=== PATIENT | male | born 1940 | race Caucasian/White ===

== ENCOUNTER 2018-10-13 09:28 | Emergency (ER) | payer BC ==
[2018-10-13 09:49] VITALS: BP 122/74; PULSE 73; TEMP 98.2; BMI 38.7
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
[2018-10-13] MEDS ORDERED: NAPROXEN 500 MG TABLET (FP) PO ONE (12:59)
[2018-10-13] MEDS ORDERED: NAPROXEN 500 MG TABLET (FP) ONE (13:44)
== END 2018-10-13 14:02 | disposition home or self-care (01) ==
LOC: JER 09:28
DX: M79.605 Pain in left leg (principal)
CPT/HCPCS: 73552-TC-LT-FY; 73562-TC-LT-FY; 93971-TC; 99282-25

== ENCOUNTER 2018-11-08 12:44 | Inpatient (IN) | payer BC, OTHER ==
--- NOTE | 2018-11-08 12:55 | PDOC ---
History of Present Illness - General Stated Complaint: LEFT KNEE PAIN Time Seen by Provider: 11/08/18 12:55 - History of Present Illness Initial Comments: 11/08/18 12:55 Mr. Frank is a 78 yo male w/ pmh of HTN, HLD, left knee replacement (w/ chronic pain) who presents for evaluation of pain to left knee after falling in the bath tub today. Patient had tri phasic bone scan 11/04/17 for his chronic pain which revealed no acute findings. Currently scheduled to follow-up with orthopedics on Saturday. Patient currently reporting exacerbation of his L knee pain. Took oxycodone at home already. The patient denies chest pain, shortness of breath, headache and dizziness. Denies fever, chills, nausea, vomit, diarrhea and constipation. Denies dysuria, frequency, urgency and hematuria. Past History - Past Medical History Allergies/Adverse Reactions: Allergies Allergy/AdvReac Type Severity Reaction Status Date / Time valdecoxib [From Bextra] Allergy Verified 10/13/18 10:57 Home Medications: Ambulatory Orders Atenolol [Tenormin] 50 mg PO DAILY 10/13/18 Atorvastatin Ca [Lipitor] 40 mg PO HS 10/13/18 Diazepam [Valium] 10 mg PO DAILY PRN 10/13/18 Naproxen [Naprosyn -] 500 mg PO BID 11/08/18 Omeprazole 20 mg PO DAILY 11/08/18 Oxycodone HCl [Roxicodone] 5 mg PO PRN PRN 11/08/18 COPD: No HTN: Yes - Immunization History Immunization Up to Date: No - Suicide/Smoking/Psychosocial Hx Smoking History: Never smoked Have you smoked in the past 12 months: No Hx Alcohol Use: No Drug/Substance Use Hx: No Review of Systems - Review of Systems Comments:: 11/08/18 12:55 GENERAL/CONSTITUTIONAL: No fever or chills. No weakness. HEAD, EYES, EARS, NOSE AND THROAT: No change in vision. No ear pain or discharge. No sore throat. CARDIOVASCULAR: No chest pain or shortness of breath RESPIRATORY: No cough, wheezing, or hemoptysis. GASTROINTESTINAL: No nausea, vomiting, diarrhea or constipation. GENITOURINARY: No dysuria, frequency, or change in urination. MUSCULOSKELETAL: +L knee pain as described. SKIN: No rash NEUROLOGIC: No headache, vertigo, loss of consciousness, or change in strength/ sensation. ENDOCRINE: No increased thirst. No abnormal weight change HEMATOLOGIC/LYMPHATIC: No anemia, easy bleeding, or history of blood clots. ALLERGIC/IMMUNOLOGIC: No hives or skin allergy. 11/08/18 13:09 *Physical Exam - Physical Exam Comments: 11/08/18 12:55 GENERAL: Awake, alert, and fully oriented, in no acute distress HEAD: No signs of trauma, normocephalic, atraumatic EYES: PERRLA, EOMI, sclera anicteric, conjunctiva clear ENT: Auricles normal inspection, hearing grossly normal, nares patent, oropharynx clear without exudates. Moist mucosa NECK: Normal ROM, supple, no lymphadenopathy, JVD, or masses LUNGS: No distress, speaks full sentences, clear to auscultation bilaterally HEART: Regular rate and rhythm, normal S1 and S2, no murmurs, rubs or gallops, peripheral pulses normal and equal bilaterally. ABDOMEN: Soft, nontender, normoactive bowel sounds. No guarding, no rebound. No masses EXTREMITIES: +Left knee TTP. Bruising noted to LLE, outside thigh. Pain w/ flexion; unable to perform ROM testing due to pain. NEUROLOGICAL: Cranial nerves II through XII grossly intact. Normal speech, normal gait, no focal sensorimotor deficits SKIN: Warm, Dry, normal turgor, no rashes or lesions noted. Medical Decision Making - Medical Decision Making 11/08/18 14:40 Mr. Frank is a 78 yo male w/ pmh as described who presents for evaluation of knee pain s/p fall. Patient pain controlled with percocet. XR taken of knee, femur, pelvis revealed L midshaft femoral fracture. Orthopedist paged for evaluation. PCP paged for admission. 11/08/18 15:04 Patient admitted. Orthopedist consulted and will evaluate. Likely surgery Saturday11/10/2018. *DC/Admit/Observation/Transfer Diagnosis at time of Disposition: Femur fracture, left Qualifiers: Encounter type: initial encounter Femur location: unspecified portion of femur Fracture type: closed Fracture morphology: unspecified fracture morphology Qualified Code(s): S72.92XA - Unspecified fracture of left femur, initial encounter for closed fracture - Discharge Dispostion Decision to Admit order: Yes - Referrals Referrals: Olivier Noble MD [Primary Care Provider] - - Patient Instructions - Post Discharge Activity
--- NOTE | 2018-11-08 13:11 | PDOC ---
Attending Attestation - HPI HPI: 11/08/18 13:47 The patient is a 78 year old male with a significant PMH of HTN, HLD, left knee replacement who presents to the emergency department complaining of left knee pain s/p fall today morning. Patient took oxycodone earlier with no relief. Patient states he fell when he was in the shower today. Patient had a bone scan on 11/04/17 for chronic left knee pain. Patient took oxycodone earlier with no relief. The patient denies chest pain, shortness of breath, headache and dizziness. Denies fever, chills, nausea, vomit, diarrhea and constipation. Denies dysuria, frequency, urgency and hematuria. Allergies: NKA Past surgical history: left knee replacement Social history: No reported alcohol, drug or cigarette use. PCP: Dr. Noble <Brenda Juarez - Last Filed: 11/08/18 13:48> - Resident Resident Name: Joe Hall - ED Attending Attestation I have performed the following: I have examined & evaluated the patient, The case was reviewed & discussed with the resident, I agree w/resident's findings & plan, Exceptions are as noted - Physicial Exam PE: GENERAL: Awake, alert, and fully oriented, in no acute distress HEAD: No signs of trauma EYES: PERRLA, EOMI, sclera anicteric, conjunctiva clear ENT: Auricles normal inspection, hearing grossly normal, nares patent, oropharynx clear without exudates. Moist mucosa NECK: Normal ROM, supple, no lymphadenopathy, JVD, or masses LUNGS: Breath sounds equal, clear to auscultation bilaterally. No wheezes, and no crackles HEART: Regular rate and rhythm, normal S1 and S2, no murmurs, rubs or gallops ABDOMEN: Soft, nontender, normoactive bowel sounds. No guarding, no rebound. No masses EXTREMITIES: L leg with ecchymosis to the lateral thigh. No bony tenderness to the thigh or knee, however, pain is elicited upon movement of the L leg. + Swelling to the L knee. Remainder of extremities with normal range of motion, no edema. No clubbing or cyanosis. No cords, erythema, or tenderness NEUROLOGICAL: Cranial nerves II through XII grossly intact. Normal speech. Motor and sensation intact SKIN: Warm, Dry, normal turgor, no rashes or lesions noted. - Medical Decision Making Pt with L knee pain, noted to have L thigh ecchymosis. Obtained XR hip, femur, and knee on the L. Pt found to have L mid-shaft femur fx. Contacted PMD and ortho. For admission. <Marcie Torrez - Last Filed: 11/08/18 15:00>
[2018-11-08 15:31] LABS: BASO % 0.7 % (0-2.0); EOS % 6.5 % (0-4.5); HEMATOCRIT 42.4 % (35.4-49); HEMOGLOBIN 14.7 GM/dL (11.7-16.9); LYMPH % 14.1 % (8-40); MCH 32.4 pg (25.7-33.7); MCHC 34.7 g/dl (32.0-35.9); MEAN CELL VOLUME 93.3 fl (80-96); MONO % 5.7 % (3.8-10.2); PLATELET COUNT 142 K/MM3 (134-434); RBC 4.54 M/mm3 (4.00-5.60); RDW 12.7 % (11.9-15.9); WHITE BLOOD COUNT 8.6 K/mm3 (4.0-10.0)
[2018-11-08 15:47] LABS: INR 1.08 (0.83-1.09); PROTHROMBIN TIME (PATIENT) 12.7 SEC (9.7-13.0)
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
[2018-11-08] MEDS ORDERED: ACETAMINOPHEN 325 MG TABLET (FP) PO PRN (15:57)
[2018-11-08 16:01] LABS: ALBUMIN 3.8 g/dl (3.4-5.0); ALK PHOS 121 U/L (45-117); ANION GAP 6 MMOL/L (8-16); BILIRUBIN,TOTAL 0.5 mg/dL (0.2-1); BLOOD UREA NITROGEN 24 mg/dL (7-18); CALCIUM 8.1 mg/dL (8.5-10.1); CHLORIDE 103 mmol/L (98-107); CO2 28 mmol/L (21-32); CREATININE 1.2 mg/dL (0.55-1.3); GLUCOSE,RANDOM 99 mg/dL (74-106); POTASSIUM 4.5 mmol/L (3.5-5.1); SGOT/AST 18 U/L (15-37); SGPT/ALT 18 U/L (13-61); SODIUM 137 mmol/L (136-145); TOT PROT 6.6 g/dl (6.4-8.2)
[2018-11-08] MEDS ORDERED: PANTOPRAZOLE 40 MG TABLET (FP) ONE (16:14)
[2018-11-08] MEDS: PANTOPRAZOLE 40 MG TABLET (FP) PO SCH (16:14)
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
[2018-11-08] MEDS ORDERED: ATORVASTATIN CA 40 MG TABLET (FP) ONE (22:36)
[2018-11-08] MEDS ORDERED: diazePAM 5 MG TABLET ONE (22:52)
[2018-11-08] MEDS: ATORVASTATIN CA 40 MG TABLET (FP) PO SCH (22:55)
[2018-11-08] MEDS: diazePAM 5 MG TABLET PO PRN (22:55)
[2018-11-09 00:20] VITALS: BMI 38.2
[2018-11-09] MEDS: HEPARIN NA (PORCINE) 5,000 UNITS/ML 1ML VIAL SQ SCH ×3 (00:43→21:34)
[2018-11-09] MEDS ORDERED: ACETAMINOPHEN 325 MG TABLET (FP) PO PRN (00:43)
[2018-11-09] MEDS: oxyCODONE HCL 5 MG TABLET PO PRN ×3 (00:46→19:42)
--- NOTE | 2018-11-09 06:13 | PN ---
Progress Note, Physician Chief Complaint: L femoral pain with moving partially better with percocet - Current Medication List Current Medications: Active Medications Acetaminophen (Tylenol -) 650 mg PO Q6H PRN PRN Reason: PAIN LEVEL 1-5 Acetaminophen (Tylenol -) 650 mg PO Q6H PRN PRN Reason: PAIN LEVEL 6-10 Last Admin: 11/09/18 00:51 Dose: 650 mg Atenolol (Tenormin -) 50 mg PO DAILY [facility] Atorvastatin Calcium (Lipitor -) 40 mg PO HS [facility] Last Admin: 11/08/18 22:55 Dose: 40 mg Diazepam (Valium -) 10 mg PO DAILY PRN PRN Reason: ANXIETY Last Admin: 11/08/18 22:55 Dose: 10 mg Heparin Sodium (Porcine) (Heparin -) 5,000 unit SQ BID [facility] Last Admin: 11/09/18 00:43 Dose: 5,000 unit Oxycodone HCl (Roxicodone -) 10 mg PO Q6H PRN PRN Reason: PAIN LEVEL 6-10 Last Admin: 11/09/18 00:46 Dose: 10 mg Pantoprazole Sodium (Protonix -) 40 mg PO DAILY [facility] Last Admin: 11/08/18 16:14 Dose: 40 mg - Objective Vital Signs: Vital Signs Temperature 97.9 F 11/09/18 00:16 Pulse Rate 62 11/09/18 00:16 Respiratory Rate 18 11/09/18 00:16 Blood Pressure 155/80 11/09/18 00:16 O2 Sat by Pulse Oximetry (%) 96 11/09/18 00:11 Constitutional: Yes: No Distress, Calm Eyes: Yes: Conjunctiva Clear HENT: Yes: Atraumatic Neck: Yes: Supple Cardiovascular: Yes: Regular Rate and Rhythm Respiratory: Yes: CTA Bilaterally Gastrointestinal: Yes: Soft. No: Distention Genitourinary: No: CVA Tenderness - Left, CVA Tenderness - Right Musculoskeletal: No: Joint Stiffness, Joint Swelling Extremities: Yes: External Rotation (LLE). No: Cold, Cool, Cyanosis Edema: No Integumentary: No: Rash, Venous Stasis Changes Neurological: Yes: WNL, Alert, Oriented ...Motor Strength: WNL Psychiatric: Yes: WNL, Alert, Oriented. No: Agitated, Suicidal Ideation Labs: CBC, BMP 11/08/18 15:15 11/08/18 15:15 INR, PTT INR 1.08 (0.83-1.09) 11/08/18 15:15 - ....Imaging Other: Report Reviewed Assessment/Plan The patient is a 78 year old male with a significant PMH of HTN, HLD, left knee replacement admitted with L mid-shaft femoral fracture labs CXR EKG noted; cleared by cardiology for ortho surgery d/w dr Rivero no absolute contraindications for the proposed L femoral surgery DVT pfx NPO after midnight if surgery bwill be done tomorrow; pain meds d/w pt and staff
--- NOTE | 2018-11-09 08:41 | EKG ---
Test Reason : Blood Pressure : / mmHG Vent. Rate : 063 BPM Atrial Rate : 063 BPM P-R Int : 208 ms QRS Dur : 094 ms QT Int : 460 ms P-R-T Axes : 029 -36 -11 degrees QTc Int : 470 ms NORMAL SINUS RHYTHM LEFT AXIS DEVIATION VOLTAGE CRITERIA FOR LEFT VENTRICULAR HYPERTROPHY NONSPECIFIC ST ABNORMALITY ABNORMAL ECG WHEN COMPARED WITH ECG OF 28-JUN-2011 07:42, MINIMAL CRITERIA FOR SEPTAL INFARCT ARE NO LONGER PRESENT NON-SPECIFIC CHANGE IN ST SEGMENT IN ANTERIOR LEADS NONSPECIFIC T WAVE ABNORMALITY NO LONGER EVIDENT IN ANTEROLATERAL LEADS QT HAS SHORTENED Confirmed by LAURENT OLIVARES, CARMEN ([id number]) on 11/09/2018 8:40:47 AM Referred By: Confirmed By:CARMEN MANCILLA MD
--- NOTE | 2018-11-09 09:32 | PN ---
Progress Note, Physician History of Present Illness: The patient is a 78 year old male with a significant PMH of HTN, HLD, left knee replacement who presents to the emergency department complaining of left knee pain s/p fall today morning. Patient took oxycodone earlier with no relief. Patient states he fell when he was in the shower today. Patient had a bone scan on 11/04/17 for chronic left knee pain. Patient took oxycodone earlier with no relief. The patient denies chest pain, shortness of breath, headache and dizziness. Denies fever, chills, nausea, vomit, diarrhea and constipation. Denies dysuria, frequency, urgency and hematuria. Allergies: NKA Past surgical history: left knee replacement Social history: No reported alcohol, drug or cigarette use. PCP: Dr. Noble - Current Medication List Current Medications: Active Medications Acetaminophen (Tylenol -) 650 mg PO Q6H PRN PRN Reason: PAIN LEVEL 1-5 Acetaminophen (Tylenol -) 650 mg PO Q6H PRN PRN Reason: PAIN LEVEL 6-10 Last Admin: 11/09/18 00:51 Dose: 650 mg Atenolol (Tenormin -) 50 mg PO DAILY [facility] Atorvastatin Calcium (Lipitor -) 40 mg PO HS [facility] Last Admin: 11/08/18 22:55 Dose: 40 mg Diazepam (Valium -) 10 mg PO DAILY PRN PRN Reason: ANXIETY Last Admin: 11/08/18 22:55 Dose: 10 mg Heparin Sodium (Porcine) (Heparin -) 5,000 unit SQ BID [facility] Last Admin: 11/09/18 00:43 Dose: 5,000 unit Oxycodone HCl (Roxicodone -) 10 mg PO Q6H PRN PRN Reason: PAIN LEVEL 6-10 Last Admin: 11/09/18 08:25 Dose: 10 mg Pantoprazole Sodium (Protonix -) 40 mg PO DAILY [facility] Last Admin: 11/08/18 16:14 Dose: 40 mg - Objective Vital Signs: Vital Signs Temperature 98.2 F 11/09/18 06:44 Pulse Rate 101 H 11/09/18 06:44 Respiratory Rate 18 11/09/18 06:44 Blood Pressure 145/80 11/09/18 06:44 O2 Sat by Pulse Oximetry (%) 96 11/09/18 00:11 Eyes: Yes: WNL, Conjunctiva Clear, EOM Intact HENT: Yes: WNL, Atraumatic, Normocephalic Neck: Yes: WNL, Supple, Trachea Midline Cardiovascular: Yes: WNL, Regular Rate and Rhythm Respiratory: Yes: WNL, Regular, CTA Bilaterally Gastrointestinal: Yes: WNL, Normal Bowel Sounds Genitourinary: Yes: WNL Musculoskeletal: Yes: WNL Extremities: Yes: WNL Edema: No Integumentary: Yes: WNL Neurological: Yes: WNL, Alert, Oriented ...Motor Strength: WNL Psychiatric: Yes: WNL Labs: INR, PTT INR 1.08 (0.83-1.09) 11/08/18 15:15 Problem List - Problems (1) Femur fracture, left Code(s): S72.92XA - UNSP FRACTURE OF LEFT FEMUR, INIT ENCNTR FOR CLOSED FRACTURE Qualifiers: Encounter type: initial encounter Femur location: unspecified portion of femur Fracture type: closed Fracture morphology: unspecified fracture morphology Qualified Code(s): S72.92XA - Unspecified fracture of left femur, initial encounter for closed fracture (2) HLD (hyperlipidemia) Code(s): E78.5 - HYPERLIPIDEMIA, UNSPECIFIED (3) HTN (hypertension) Code(s): I10 - ESSENTIAL (PRIMARY) HYPERTENSION (4) Obesity Code(s): E66.9 - OBESITY, UNSPECIFIED (5) Leg pain, left Code(s): M79.605 - PAIN IN LEFT LEG Assessment/Plan l femur fx s/p l tkr htn hlp reports negative cardiac w/u last year no evidence of angina or mi, reports good exercise tolerance prior to fall Plan patient is low risk for cardiovascular complications for ORIF. cont DVT plx
[2018-11-09 09:39] LABS: HEMATOCRIT 43.7 % (35.4-49); HEMOGLOBIN 15.1 GM/dL (11.7-16.9); MCH 32.5 pg (25.7-33.7); MCHC 34.6 g/dl (32.0-35.9); MEAN CELL VOLUME 93.8 fl (80-96); MEAN PLT VOLUME 10.9 fl (7.5-11.1); PLATELET COUNT 130 K/MM3 (134-434); RBC 4.66 M/mm3 (4.00-5.60); RDW 13.2 % (11.9-15.9); WHITE BLOOD COUNT 6.9 K/mm3 (4.0-10.0)
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
[2018-11-09 10:14] LABS: ANION GAP 5 MMOL/L (8-16); BLOOD UREA NITROGEN 23 mg/dL (7-18); CALCIUM 8.8 mg/dL (8.5-10.1); CHLORIDE 102 mmol/L (98-107); CO2 29 mmol/L (21-32); CREATININE 1.1 mg/dL (0.55-1.3); GLUCOSE,RANDOM 100 mg/dL (74-106); POTASSIUM 4.2 mmol/L (3.5-5.1); SODIUM 136 mmol/L (136-145)
[2018-11-09] MEDS: PANTOPRAZOLE 40 MG TABLET (FP) PO SCH (10:15)
[2018-11-09] MEDS: ATENOLOL 50 MG TABLET (FP) PO SCH (10:15)
[2018-11-09] MEDS: diazePAM 5 MG TABLET PO PRN (11:22)
[2018-11-09] MEDS: ATORVASTATIN CA 40 MG TABLET (FP) PO SCH (21:34)
[2018-11-10] MEDS: oxyCODONE HCL 5 MG TABLET PO PRN ×2 (01:19→20:18)
[2018-11-10 07:31] LABS: BASO % 0.5 % (0-2.0); HEMATOCRIT 44.3 % (35.4-49); HEMOGLOBIN 14.2 GM/dL (11.7-16.9); LYMPH % 21.4 % (8-40); MCH 30.5 pg (25.7-33.7); MCHC 32.1 g/dl (32.0-35.9); MEAN PLT VOLUME 11.1 fl (7.5-11.1); MONO % 11.4 % (3.8-10.2); NEUT % 58.7 % (42.8-82.8); PLATELET COUNT 114 K/MM3 (134-434); RBC 4.66 M/mm3 (4.00-5.60); RDW 12.9 % (11.9-15.9)
[2018-11-10 08:19] LABS: ALBUMIN 3.3 g/dl (3.4-5.0); ALK PHOS 113 U/L (45-117); ANION GAP 8 MMOL/L (8-16); BILIRUBIN,TOTAL 0.6 mg/dL (0.2-1); BLOOD UREA NITROGEN 19 mg/dL (7-18); CALCIUM 8.5 mg/dL (8.5-10.1); CHLORIDE 100 mmol/L (98-107); CO2 27 mmol/L (21-32); CREATININE 1.1 mg/dL (0.55-1.3); GLUCOSE,RANDOM 91 mg/dL (74-106); POTASSIUM 4.1 mmol/L (3.5-5.1); SGOT/AST 11 U/L (15-37); SGPT/ALT 14 U/L (13-61); SODIUM 135 mmol/L (136-145); TOT PROT 6.3 g/dl (6.4-8.2)
--- NOTE | 2018-11-10 09:03 | PN ---
Progress Note (short form) - Note Progress Note: Ortho Pt seen and examined + shortened and ER, calf soft, nt nvi a/p OR today for left long IM gamma nail NPO d/w Dr. Alexander
--- NOTE | 2018-11-10 10:55 | PN ---
Progress Note, Physician Chief Complaint: in bed awake alert NAD afebrile VSS awaiting leg surgery no c/o except LLE pain with moving. - Current Medication List Current Medications: Active Medications Acetaminophen (Tylenol -) 650 mg PO Q6H PRN PRN Reason: PAIN LEVEL 1-5 Acetaminophen (Tylenol -) 650 mg PO Q6H PRN PRN Reason: PAIN LEVEL 6-10 Last Admin: 11/09/18 00:51 Dose: 650 mg Atenolol (Tenormin -) 50 mg PO DAILY [facility] Last Admin: 11/09/18 10:15 Dose: 50 mg Atorvastatin Calcium (Lipitor -) 40 mg PO HS [facility] Last Admin: 11/09/18 21:34 Dose: 40 mg Heparin Sodium (Porcine) (Heparin -) 5,000 unit SQ BID [facility] Last Admin: 11/09/18 21:34 Dose: 5,000 unit Oxycodone HCl (Roxicodone -) 10 mg PO Q6H PRN PRN Reason: PAIN LEVEL 6-10 Last Admin: 11/10/18 01:19 Dose: 10 mg Pantoprazole Sodium (Protonix -) 40 mg PO DAILY [facility] Last Admin: 11/09/18 10:15 Dose: 40 mg - Objective Vital Signs: Vital Signs Temperature 98.6 F 11/10/18 06:00 Pulse Rate 68 11/10/18 06:00 Respiratory Rate 20 11/10/18 06:00 Blood Pressure 153/76 11/10/18 06:00 O2 Sat by Pulse Oximetry (%) 96 11/09/18 00:11 Constitutional: Yes: No Distress, Calm Eyes: Yes: Conjunctiva Clear HENT: Yes: Atraumatic Neck: Yes: Supple Cardiovascular: Yes: Regular Rate and Rhythm Respiratory: Yes: CTA Bilaterally Gastrointestinal: Yes: Soft. No: Tenderness Genitourinary: No: CVA Tenderness - Left, CVA Tenderness - Right Musculoskeletal: No: Joint Stiffness, Joint Swelling Extremities: No: Cold, Cool Edema: No Integumentary: No: Rash, Venous Stasis Changes Neurological: Yes: WNL, Alert, Oriented ...Motor Strength: WNL Psychiatric: Yes: WNL, Alert, Oriented. No: Agitated, Suicidal Ideation Labs: CBC, BMP 11/10/18 06:30 11/10/18 06:30 INR, PTT INR 1.08 (0.83-1.09) 11/08/18 15:15 - ....Imaging Other: Report Reviewed Assessment/Plan The patient is a 78 year old male with a significant PMH of HTN, HLD, left knee replacement admitted with L mid-shaft femoral fracture labs CXR EKG noted; cleared by cardiology for ortho surgery no absolute contraindications for the proposed L femoral surgery DVT pfx NPO today pain meds d/w pt and staff - pt agreed with procedure
[2018-11-10] MEDS: PANTOPRAZOLE 40 MG TABLET (FP) PO SCH (10:58)
[2018-11-10] MEDS: HEPARIN NA (PORCINE) 5,000 UNITS/ML 1ML VIAL SQ SCH (10:59)
[2018-11-10] MEDS: ATENOLOL 50 MG TABLET (FP) PO SCH (11:13)
[2018-11-10] MEDS ORDERED: MIDAZOLAM HCL 2 MG/2 ML SINGLE DOSE VIAL ONE ×2 (14:18)
[2018-11-10] MEDS ORDERED: ceFAZolin SODIUM 1 GM VIAL IVPB ONE (14:30)
--- NOTE | 2018-11-10 14:50 | PN ---
Progress Note, Physician History of Present Illness: The patient is a 78 year old male with a significant PMH of HTN, HLD, left knee replacement who presents to the emergency department complaining of left knee pain s/p fall today morning. Patient took oxycodone earlier with no relief. Patient states he fell when he was in the shower today. Patient had a bone scan on 11/04/17 for chronic left knee pain. Patient took oxycodone earlier with no relief. The patient denies chest pain, shortness of breath, headache and dizziness. Denies fever, chills, nausea, vomit, diarrhea and constipation. Denies dysuria, frequency, urgency and hematuria. Allergies: NKA Past surgical history: left knee replacement Social history: No reported alcohol, drug or cigarette use. PCP: Dr. Noble - Current Medication List Current Medications: Active Medications Acetaminophen (Tylenol -) 650 mg PO Q6H PRN PRN Reason: PAIN LEVEL 6-10 Last Admin: 11/09/18 00:51 Dose: 650 mg Atenolol (Tenormin -) 50 mg PO DAILY [facility] Last Admin: 11/10/18 11:13 Dose: 50 mg Atorvastatin Calcium (Lipitor -) 40 mg PO HS [facility] Last Admin: 11/09/18 21:34 Dose: 40 mg Heparin Sodium (Porcine) (Heparin -) 5,000 unit SQ BID [facility] Last Admin: 11/10/18 10:59 Dose: Not Given Oxycodone HCl (Roxicodone -) 10 mg PO Q6H PRN PRN Reason: PAIN LEVEL 6-10 Last Admin: 11/10/18 01:19 Dose: 10 mg Pantoprazole Sodium (Protonix -) 40 mg PO DAILY [facility] Last Admin: 11/10/18 10:58 Dose: Not Given - Objective Vital Signs: Vital Signs Temperature 98.4 F 11/10/18 09:00 Pulse Rate 69 11/10/18 09:00 Respiratory Rate 18 11/10/18 09:00 Blood Pressure 125/73 11/10/18 09:00 O2 Sat by Pulse Oximetry (%) 96 11/10/18 09:00 Eyes: Yes: WNL, Conjunctiva Clear, EOM Intact HENT: Yes: WNL, Atraumatic, Normocephalic Neck: Yes: WNL, Supple, Trachea Midline Cardiovascular: Yes: WNL, Regular Rate and Rhythm Respiratory: Yes: WNL, Regular, CTA Bilaterally Gastrointestinal: Yes: WNL, Normal Bowel Sounds Genitourinary: Yes: WNL Musculoskeletal: Yes: WNL Extremities: Yes: WNL Edema: Yes Integumentary: Yes: WNL Neurological: Yes: WNL, Alert, Oriented ...Motor Strength: WNL Psychiatric: Yes: WNL Labs: CBC, BMP 11/10/18 06:30 11/10/18 06:30 INR, PTT INR 1.08 (0.83-1.09) 11/08/18 15:15 Problem List - Problems (1) Femur fracture, left Code(s): S72.92XA - UNSP FRACTURE OF LEFT FEMUR, INIT ENCNTR FOR CLOSED FRACTURE Qualifiers: Encounter type: initial encounter Femur location: unspecified portion of femur Fracture type: closed Fracture morphology: unspecified fracture morphology Qualified Code(s): S72.92XA - Unspecified fracture of left femur, initial encounter for closed fracture (2) HLD (hyperlipidemia) Code(s): E78.5 - HYPERLIPIDEMIA, UNSPECIFIED (3) HTN (hypertension) Code(s): I10 - ESSENTIAL (PRIMARY) HYPERTENSION (4) Obesity Code(s): E66.9 - OBESITY, UNSPECIFIED (5) Leg pain, left Code(s): M79.605 - PAIN IN LEFT LEG Assessment/Plan l femur fx s/p l tkr htn hlp reports negative cardiac w/u last year no evidence of angina or mi, reports good exercise tolerance prior to fall Plan patient is low risk for cardiovascular complications for ORIF. cont DVT plx
[2018-11-10] MEDS ORDERED: ceFAZolin SODIUM 1 GM VIAL ONE (15:26)
[2018-11-10] MEDS ORDERED: PROPOFOL 20 ML ONE ×2 (15:26→16:21)
[2018-11-10] MEDS ORDERED: HEPARIN NA (PORCINE) 5,000 UNITS/ML 1ML VIAL ONE (15:49)
[2018-11-10] MEDS ORDERED: ePHEDrine SULFATE 50 MG/1 ML AMPULE ONE (15:50)
--- NOTE | 2018-11-10 15:56 | OP ---
Operative Note - Note: Operative Date: 11/10/18 ([facility]) Pre-Operative Diagnosis: left femoral shaft fx Operation: left long IM gamma nail Post-Operative Diagnosis: Same as Pre-op Surgeon: Enio Alexander [employer]sembler [employer] Footwear: Laith Sharp Estimated Blood Loss (mls): 50 Operative Report Dictated: Yes
[2018-11-10] MEDS ORDERED: ONDANSETRON 4 MG/2 ML VIAL IVPUSH PRN (17:01)
[2018-11-10] MEDS ORDERED: guaiFENesin 200 MG/10 ML 10 ML UNIT-DOSE CUPS PO PRN (21:04)
[2018-11-10] MEDS: ATORVASTATIN CA 40 MG TABLET (FP) PO SCH (21:07)
[2018-11-10] MEDS: CEFAZOLIN 2 GM/D5W 2 GM/50 ML ML IVPB SCH (22:04)
[2018-11-10] MEDS ORDERED: CEFAZOLIN 2 GM/D5W 2 GM/50 ML ML IVPB SCH (23:00)
[2018-11-10] MEDS: ACETAMINOPHEN 325 MG TABLET (FP) PO PRN (23:26)
[2018-11-11] MEDS: oxyCODONE HCL 5 MG TABLET PO PRN ×3 (02:03→19:01)
[2018-11-11] MEDS: CEFAZOLIN 2 GM/D5W 2 GM/50 ML ML IVPB SCH (06:08)
[2018-11-11 07:24] LABS: BASO % 0.7 % (0-2.0); EOS % 8.1 % (0-4.5); HEMATOCRIT 38.7 % (35.4-49); HEMOGLOBIN 12.5 GM/dL (11.7-16.9); LYMPH % 15.7 % (8-40); MCH 30.8 pg (25.7-33.7); MCHC 32.4 g/dl (32.0-35.9); MEAN CELL VOLUME 95.1 fl (80-96); MEAN PLT VOLUME 10.1 fl (7.5-11.1); MONO % 9.2 % (3.8-10.2); NEUT % 66.3 % (42.8-82.8); PLATELET COUNT 91 K/MM3 (134-434); RBC 4.07 M/mm3 (4.00-5.60); RDW 12.8 % (11.9-15.9); WHITE BLOOD COUNT 6.9 K/mm3 (4.0-10.0)
[2018-11-11 07:59] LABS: ALBUMIN 2.7 g/dl (3.4-5.0); ALK PHOS 88 U/L (45-117); ANION GAP 5 MMOL/L (8-16); BILIRUBIN,TOTAL 0.8 mg/dL (0.2-1); BLOOD UREA NITROGEN 20 mg/dL (7-18); CHLORIDE 100 mmol/L (98-107); CO2 29 mmol/L (21-32); CREATININE 1.1 mg/dL (0.55-1.3); GLUCOSE,RANDOM 121 mg/dL (74-106); POTASSIUM 3.9 mmol/L (3.5-5.1); SGOT/AST 23 U/L (15-37); SGPT/ALT 14 U/L (13-61); SODIUM 134 mmol/L (136-145); TOT PROT 5.5 g/dl (6.4-8.2)
--- NOTE | 2018-11-11 08:47 | OP ---
DATE OF OPERATION: 11/10/2018 PREOPERATIVE DIAGNOSIS: Repeat left femoral shaft fracture. POSTOPERATIVE DIAGNOSIS: Repeat left femoral shaft fracture. PROCEDURE: Intramedullary rodding of left femoral shaft fracture and iliac crest aspiration and open bone grafting of the fracture. SURGICAL ATTENDING: Juanjo Alexander MD BAFFLE MOUNTER: GLENNY Boykin ANESTHESIA: Spinal. CLOSURE: A 11 x 400 mm, 125-degree gamma nail with appropriate interlocks, 0 Vicryl fascia, 2-0 subcutaneous, and rakesh for skin. ESTIMATED BLOOD LOSS: Approximately 200 mL. COMPLICATIONS: None. CONDITION: To recovery room in stable condition. DESCRIPTION OF OPERATIVE PROCEDURE: Patient was taken to the operating room on November 10, 2018. Spinal anesthesia was administered by the anesthesiologist along with IV Kefzol prophylactically prior to the case. Patient was fastened to the fracture table with all prominences well padded. Excellent reduction was confirmed in the AP and lateral planes by using the image intensifier. The left lateral femur and iliac crest were prepped and draped in the usual sterile fashion using a shower curtain. A 3-4-cm longitudinal incision with tip of the greater trochanter, and when incised and hemostasis was achieved with Bovie cautery, sharp dissection was carried through the fascia. A guidewire was drilled from the tip of the greater trochanter into the intramedullary canal. Proper placement was confirmed by the AP and lateral planes by using the image intensifier. This was overreamed with the proximal reamer. A ball-tipped guidewire was placed down the intramedullary canal past the fracture into the distal shaft down to the level of the knee (above the total knee replacement). Proper placement of the wire was confirmed in the AP and lateral planes by using the image intensifier. Intramedullary canal was reamed up to a 12.5 reamer, which would facilitate an 11 elpidio. The guidewire was measured to be 400 mm. A 400 x 11 mm elpidio about 125-degree angle was malletted down into place. Using the outrigger and through a small stab incision laterally, guidewire was drilled from lateral femur through the rods to the femoral neck into the femoral head. Proper placement was confirmed in the AP and lateral planes by using the image intensifier. This wire was depth-gauged and reamed with a triple reamer, then screwed with the appropriate length screw. A set screw was placed from above in the static fashion locking the elpidio proximally. The outrigger was then removed. Using a free hand technique, two distal interlocks were drilled from lateral to medially to two small stab incisions achieved excellent fixation. At the beginning of the case, an iliac crest aspirate needle was tapped into the iliac crest between the two tables, 60 mL of intramedullary aspirate were then drawn out and were passed off the table to be centrifuged. After centrifuging and concentrating the cells, it was mixed up with 30 mL of cancellous bone. Using the image intensifier, small stab incision was made at the level of the fracture. The double-sleeve for the lag screw was placed down to the level of the fracture and confirmed to be at the level of the fracture. The cancellous bone with the aspirate mixture was then placed down the trocar and tamped into the level of the fracture. All incisions were irrigated with copious amounts of irrigation. The fascia was closed with 0 Vicryl, 2-0 for subcutaneous, and rakesh for skin. Sterile pressure dressing was applied. Proper placement of all hardware and excellent reduction of the fracture was performed in the AP and lateral plane using the image intensifier. The patient was taken off the fracture table and transferred to the recovery room in stable condition. No complications. Estimated blood loss approximately 200 mL. JUANJO ALEXANDER M.D. [id number]
--- NOTE | 2018-11-11 09:32 | PN ---
Progress Note, Physician Chief Complaint: postop day 1 LLE femoral fracture had some cough since last night will check CXR pt asked for valium for anxiety he said he was before on 5 mg po bid per psych d /w pt possible risks and SE falls tolerance dependence he is aware; use prn only - Current Medication List Current Medications: Active Medications Acetaminophen (Tylenol -) 650 mg PO Q6H PRN PRN Reason: PAIN LEVEL 6-10 Last Admin: 11/10/18 23:26 Dose: 650 mg Atenolol (Tenormin -) 50 mg PO DAILY [facility] Atorvastatin Calcium (Lipitor -) 40 mg PO HS [facility] Last Admin: 11/10/18 21:07 Dose: 40 mg Enoxaparin Sodium (Lovenox -) 40 mg SQ DAILY [facility] Guaifenesin (Robitussin -) 10 ml PO Q6H PRN PRN Reason: COUGH Last Admin: 11/10/18 21:07 Dose: 10 ml Ondansetron HCl (Zofran Injection) 4 mg IVPUSH Q6H PRN PRN Reason: NAUSEA AND/OR VOMITING Oxycodone HCl (Roxicodone -) 10 mg PO Q6H PRN PRN Reason: PAIN LEVEL 6-10 Last Admin: 11/11/18 02:03 Dose: 10 mg Pantoprazole Sodium (Protonix -) 40 mg PO DAILY [facility] - Objective Vital Signs: Vital Signs Temperature 98.3 F 11/11/18 06:00 Pulse Rate 65 11/11/18 06:00 Respiratory Rate 18 11/11/18 06:00 Blood Pressure 125/57 L 11/11/18 06:00 O2 Sat by Pulse Oximetry (%) 98 11/10/18 17:35 Constitutional: Yes: No Distress, Calm Eyes: Yes: Conjunctiva Clear HENT: Yes: Atraumatic Neck: Yes: Supple Cardiovascular: Yes: Regular Rate and Rhythm Respiratory: Yes: CTA Bilaterally Gastrointestinal: Yes: Soft. No: Tenderness Genitourinary: No: CVA Tenderness - Left, CVA Tenderness - Right Extremities: Yes: Other (LLE surgery). No: Calf Tenderness, Cold, Cool Edema: No Integumentary: No: Rash, Venous Stasis Changes Neurological: Yes: WNL, Alert, Oriented ...Motor Strength: WNL Psychiatric: Yes: WNL, Alert, Oriented. No: Agitated Labs: CBC, BMP 11/11/18 06:15 11/11/18 06:15 INR, PTT INR 1.08 (0.83-1.09) 11/08/18 15:15 - ....Imaging Other: Report Reviewed Assessment/Plan The patient is a 78 year old male with a significant PMH of HTN, HLD, left knee replacement admitted with L mid-shaft femoral fracture labs CXR EKG noted; s/p L femoral surgery for fracture DVT pfx valium prn for anxiety cough: CXR; incentive spirometry pain meds d/w pt and staff
[2018-11-11] MEDS ORDERED: ENOXAPARIN NA (PORCINE) 40 MG/0.4 ML DISP.SYRIN SQ SCH (10:00)
[2018-11-11] MEDS: ENOXAPARIN NA (PORCINE) 40 MG/0.4 ML DISP.SYRIN SQ SCH (10:01)
[2018-11-11] MEDS: ATENOLOL 50 MG TABLET (FP) PO SCH (10:02)
[2018-11-11] MEDS: ACETAMINOPHEN 325 MG TABLET (FP) PO PRN ×2 (10:02→19:00)
[2018-11-11] MEDS: PANTOPRAZOLE 40 MG TABLET (FP) PO SCH (10:07)
--- NOTE | 2018-11-11 11:06 | PN ---
Progress Note, Physician Chief Complaint: Pt is upset over a financial issue from ?office visit. He says his heart is fine , and does not want to see anyone for cardiac issues. History of Present Illness: Mr. Frank is a 78 yo male w/ pmh of HTN, HLD, left knee replacement (w/ chronic pain) who presents for evaluation of pain to left knee after falling in the bath tub today. Patient had tri phasic bone scan 11/04/17 for his chronic pain which revealed no acute findings. Currently scheduled to follow-up with orthopedics on Saturday. Patient currently reporting exacerbation of his L knee pain. Took oxycodone at home already. The patient denies chest pain, shortness of breath, headache and dizziness. Denies fever, chills, nausea, vomit, diarrhea and constipation. Denies dysuria, frequency, urgency and hematuria. Stress MIBI was negative for ischemia (12/2017 in office) - Current Medication List Current Medications: Active Medications Acetaminophen (Tylenol -) 650 mg PO Q6H PRN PRN Reason: PAIN LEVEL 6-10 Last Admin: 11/11/18 10:02 Dose: 650 mg Atenolol (Tenormin -) 50 mg PO DAILY [facility] Last Admin: 11/11/18 10:02 Dose: 50 mg Atorvastatin Calcium (Lipitor -) 40 mg PO HS [facility] Last Admin: 11/10/18 21:07 Dose: 40 mg Enoxaparin Sodium (Lovenox -) 40 mg SQ DAILY [facility] Last Admin: 11/11/18 10:01 Dose: 40 mg Guaifenesin (Robitussin -) 10 ml PO Q6H PRN PRN Reason: COUGH Last Admin: 11/10/18 21:07 Dose: 10 ml Ondansetron HCl (Zofran Injection) 4 mg IVPUSH Q6H PRN PRN Reason: NAUSEA AND/OR VOMITING Oxycodone HCl (Roxicodone -) 10 mg PO Q6H PRN PRN Reason: PAIN LEVEL 6-10 Last Admin: 11/11/18 10:02 Dose: 10 mg Pantoprazole Sodium (Protonix -) 40 mg PO DAILY [facility] Last Admin: 11/11/18 10:07 Dose: 40 mg - Objective Vital Signs: Vital Signs Temperature 98.3 F 11/11/18 06:00 Pulse Rate 65 11/11/18 06:00 Respiratory Rate 18 11/11/18 06:00 Blood Pressure 125/57 L 11/11/18 06:00 O2 Sat by Pulse Oximetry (%) 98 11/10/18 17:35 Labs: CBC, BMP 11/11/18 06:15 11/11/18 06:15 INR, PTT INR 1.08 (0.83-1.09) 11/08/18 15:15 Problem List - Problems (1) Femur fracture, left Code(s): S72.92XA - UNSP FRACTURE OF LEFT FEMUR, INIT ENCNTR FOR CLOSED FRACTURE Qualifiers: Encounter type: initial encounter Femur location: unspecified portion of femur Fracture type: closed Fracture morphology: unspecified fracture morphology Qualified Code(s): S72.92XA - Unspecified fracture of left femur, initial encounter for closed fracture (2) HLD (hyperlipidemia) Code(s): E78.5 - HYPERLIPIDEMIA, UNSPECIFIED (3) HTN (hypertension) Code(s): I10 - ESSENTIAL (PRIMARY) HYPERTENSION (4) Obesity Code(s): E66.9 - OBESITY, UNSPECIFIED (5) Care refused by patient Assessment/Plan: Pt repeatedly refused to see me today, saying he was upset over a matter that had taken place earlier this year. He says his heart is not a problem, and he does not want to see the clinical account specialist he had been seeing in the past. Atress MIBI 12/2017: no ischemia. Discussed with Dr. Noble; pt will be referred to another clinical account specialist. Code(s): Z53.29 - PROC/TRTMT NOT CRD OUT BEC PT DECISION FOR OTH REASONS
[2018-11-11] MEDS: diazePAM 5 MG TABLET PO PRN ×2 (11:43→22:26)
--- NOTE | 2018-11-11 13:45 | PN ---
Progress Note (short form) - Note Progress Note: AVSS COMFORTABLE CALF SOFT AND NT NVI HCT OK IMP:DOING WELL PLAN: PT - WBAT, DC PLANNING
[2018-11-11] MEDS ORDERED: ARTIFICIAL TEARS (POLYVINYL ALCOHOL) OPTH DROPS OU PRN (17:38)
[2018-11-11] MEDS ORDERED: DOCUSATE SODIUM 100 MG CAPSULE (FP) PO ONE (17:45)
[2018-11-11] MEDS: LORATADINE 10 MG TABLET PO SCH (18:46)
--- NOTE | 2018-11-11 19:30 | PN ---
Progress Note (short form) - Note Progress Note: Patient did not want to be examined by" another doctor." Chart reviewed and falling platelets noted . HIT antibody ordered. .
[2018-11-11] MEDS: ATORVASTATIN CA 40 MG TABLET (FP) PO SCH (22:26)
--- NOTE | 2018-11-12 06:38 | DS ---
Physical Examination Vital Signs: Vital Signs Temperature 98.4 F 11/12/18 05:00 Pulse Rate 73 11/12/18 05:00 Respiratory Rate 20 11/12/18 05:00 Blood Pressure 136/65 11/12/18 05:00 O2 Sat by Pulse Oximetry (%) 98 11/10/18 17:35 Findings/Remarks: in bed awake alert NAD afebrile VSS much less cough no sputum no CP/SOB; no hemoptysis; doing incentive spirometry. PLT 94 stable; refused heme eval; antiPLT atb pending; cleared by ortho for DC to SNF d/w pt and at bedside and d/w CM falls DVT decubs aspiration and constipation pfx d/w pt and ; also d/w them CXR few atelectasis - advised to get chest CT no IVC outpt for f/u and h/o smoking (although he stopped 20 years ago) f/u ortho in 1-2 qweeks after DC from f/u cardiology dr Sawant in 1-2 months after DC from [facility] GI and health screening outpt per PCP d/w pt and all the above Constitutional: Yes: No Distress, Calm Eyes: Yes: Conjunctiva Clear HENT: Yes: Atraumatic Neck: Yes: Supple Cardiovascular: Yes: Regular Rate and Rhythm Respiratory: Yes: CTA Bilaterally Gastrointestinal: Yes: Soft. No: Tenderness Renal/: No: CVA Tenderness - Left, CVA Tenderness - Right Musculoskeletal: No: Joint Stiffness, Joint Swelling Extremities: Yes: Other (LLE surgery). No: Cold, Cool, Cyanosis Edema: No Integumentary: No: Rash, Venous Stasis Changes Neurological: Yes: WNL, Alert, Oriented ...Motor Strength: WNL Psychiatric: Yes: WNL, Alert, Oriented. No: Agitated, Suicidal Ideation Labs: CBC, BMP 11/11/18 06:15 11/11/18 06:15 Discharge Summary Reason For Visit: FRATURE OF LEFT FEMUR Current Active Problems Care refused by patient (Acute) Femur fracture, left (Acute) HLD (hyperlipidemia) (Acute) HTN (hypertension) (Acute) Obesity (Acute) Procedures: Principal: s/p LLE femoral fracture after a fall Other Procedures: ortho surgery dr Alexander; needs PT rehab;. seen by cardiology for clearance and heme for bordwrline low PLT; f/u outpt;. had transient cough postop better now CXR atelectasis; to have chest CT outpt (h/o smoking many years ago);. anxiety on valium prn; falls PFX Hospital Course: improved with above; DC to SNF Condition: Improved - Instructions Referrals: Olivier Noble MD [Primary Care Provider] - Disposition: RETIREMENT FACILITY - Home Medications Comprehensive Discharge Medication List: Ambulatory Orders Atenolol [Tenormin] 50 mg PO DAILY 10/13/18 Atorvastatin Ca [Lipitor] 40 mg PO HS 10/13/18 Omeprazole 20 mg PO DAILY 11/08/18 Acetaminophen [Tylenol .Regular Strength -] 650 mg PO Q6H PRN tablet 11/12/18 Diazepam [Valium] 5 mg PO BID PRN tablet MDD 10 mg 11/12/18 Docusate Sodium [Colace -] 200 mg PO DAILY capsule 11/12/18 Enoxaparin [Lovenox -] 40 mg SQ DAILY disp.syrin 11/12/18 Guaifenesin [Robitussin -] 10 ml PO Q6H PRN cup 11/12/18 Loratadine [Claritin -] 10 mg PO DAILY PRN tablet 11/12/18 Polyvinyl Alcohol [Artificial Tears] 1 drop OU Q6H PRN drops 11/12/18 oxyCODONE HCL [Roxicodone -] 5 mg PO Q6H PRN tablet MDD 20 mg 11/12/18
[2018-11-12 08:09] LABS: BASO % 0.5 % (0-2.0); HEMATOCRIT 35.3 % (35.4-49); HEMOGLOBIN 12.1 GM/dL (11.7-16.9); LYMPH % 15.3 % (8-40); MCH 32.4 pg (25.7-33.7); MCHC 34.2 g/dl (32.0-35.9); MEAN CELL VOLUME 94.9 fl (80-96); MEAN PLT VOLUME 11.1 fl (7.5-11.1); MONO % 9.3 % (3.8-10.2); NEUT % 63.9 % (42.8-82.8); PLATELET COUNT 94 K/MM3 (134-434); RBC 3.73 M/mm3 (4.00-5.60); RDW 12.4 % (11.9-15.9); WHITE BLOOD COUNT 6.7 K/mm3 (4.0-10.0)
--- NOTE | 2018-11-12 09:46 | PN ---
Progress Note (short form) - Note Progress Note: Pt seen and examined. He is on POD #2 s/p left femur fracturs and IM nail. He appears completely comfortable but c/o pain left thigh. AVSS H/H stable at 12.1/35 LLE is NVI Good ROM at the left foot, ankle, toes Left thigh is not tense, not tender Dressing CDI Overall the pt is doing very well on POD #2. He is stable and ready for discharge to a SNF today F/U with Dr Aelxander in 7-10 days
[2018-11-12] MEDS: oxyCODONE HCL 5 MG TABLET PO PRN ×3 (10:15→21:35)
[2018-11-12] MEDS: PANTOPRAZOLE 40 MG TABLET (FP) PO SCH (10:18)
[2018-11-12] MEDS: DOCUSATE SODIUM 100 MG CAPSULE (FP) PO SCH (10:18)
[2018-11-12] MEDS: ENOXAPARIN NA (PORCINE) 40 MG/0.4 ML DISP.SYRIN SQ SCH (10:18)
[2018-11-12] MEDS: LORATADINE 10 MG TABLET PO SCH (10:18)
[2018-11-12] MEDS: ATENOLOL 50 MG TABLET (FP) PO SCH (10:18)
[2018-11-12] MEDS: ATORVASTATIN CA 40 MG TABLET (FP) PO SCH (21:35)
[2018-11-12] MEDS: diazePAM 5 MG TABLET PO PRN (21:35)
--- NOTE | 2018-11-13 09:12 | PN ---
Progress Note, Physician Chief Complaint: with some dry cough on/off no CP or SOB; h/o ex smoker; will check chest CT now awaiting SNF placement L thigh pain on/off pt mentioned he is taking valium and lexapro bid per psych dr Younger, ordered per pt's home doses - Current Medication List Current Medications: Active Medications Acetaminophen (Tylenol -) 650 mg PO Q6H PRN PRN Reason: PAIN LEVEL 6-10 Last Admin: 11/11/18 19:00 Dose: 650 mg Artificial Tears (Artificial Tears) 1 drop OU Q6H PRN PRN Reason: DRY EYES Last Admin: 11/11/18 22:29 Dose: 1 drop Atenolol (Tenormin -) 50 mg PO DAILY [facility] Last Admin: 11/12/18 10:18 Dose: 50 mg Atorvastatin Calcium (Lipitor -) 40 mg PO HS [facility] Last Admin: 11/12/18 21:35 Dose: 40 mg Diazepam (Valium -) 5 mg PO BID PRN PRN Reason: ANXIETY Last Admin: 11/12/18 21:35 Dose: 5 mg Docusate Sodium (Colace -) 200 mg PO DAILY [facility] Last Admin: 11/12/18 10:18 Dose: 200 mg Enoxaparin Sodium (Lovenox -) 40 mg SQ DAILY [facility] Last Admin: 11/12/18 10:18 Dose: 40 mg Guaifenesin (Robitussin -) 10 ml PO Q6H PRN PRN Reason: COUGH Last Admin: 11/10/18 21:07 Dose: 10 ml Loratadine (Claritin -) 10 mg PO DAILY [facility] Last Admin: 11/12/18 10:18 Dose: 10 mg Ondansetron HCl (Zofran Injection) 4 mg IVPUSH Q6H PRN PRN Reason: NAUSEA AND/OR VOMITING Oxycodone HCl (Roxicodone -) 10 mg PO Q6H PRN PRN Reason: PAIN LEVEL 6-10 Last Admin: 11/12/18 21:35 Dose: 10 mg Pantoprazole Sodium (Protonix -) 40 mg PO DAILY [facility] Last Admin: 11/12/18 10:18 Dose: 40 mg - Objective Vital Signs: Vital Signs Temperature 98.4 F 11/13/18 05:00 Pulse Rate 66 11/13/18 05:00 Respiratory Rate 20 11/13/18 05:00 Blood Pressure 131/53 L 11/13/18 05:00 O2 Sat by Pulse Oximetry (%) 98 11/10/18 17:35 Constitutional: Yes: No Distress, Calm Eyes: Yes: Conjunctiva Clear HENT: Yes: Atraumatic Neck: Yes: Supple Cardiovascular: Yes: Regular Rate and Rhythm Respiratory: Yes: CTA Bilaterally Gastrointestinal: Yes: Soft. No: Tenderness Genitourinary: No: CVA Tenderness - Left, CVA Tenderness - Right Musculoskeletal: No: Joint Stiffness, Joint Swelling Extremities: Yes: Other (L thigh wound postop, clean no rash no edema). No: Cold, Cool Edema: No Integumentary: No: Rash, Venous Stasis Changes Neurological: Yes: WNL, Alert, Oriented ...Motor Strength: WNL Psychiatric: Yes: WNL, Alert, Oriented. No: Agitated Labs: CBC, BMP 11/12/18 06:30 11/11/18 06:15 INR, PTT INR 1.08 (0.83-1.09) 11/08/18 15:15 - ....Imaging Other: Report Reviewed Assessment/Plan The patient is a 78 year old male with a significant PMH of HTN, HLD, left knee replacement admitted with L mid-shaft femoral fracture; hyponatremia; labs CXR EKG noted; s/p L femoral surgery for fracture DVT pfx valium prn for anxiety cough: chest CT; incentive spirometry pain meds d/w pt and staff; SNF placement pending insurance approval
--- NOTE | 2018-11-13 09:42 | PN ---
Progress Note (short form) - Note Progress Note: Pt seen and examined. He is doing well, less pain. AVSS H/H stable LLE is NVI, good ROM at the L knee, ankle, foot, toes. Thigh not tense, Overall doing very well, stable. Rec: DC to SNF today. F/u with Dr Alexander in 7-14 days
[2018-11-13] MEDS: ENOXAPARIN NA (PORCINE) 40 MG/0.4 ML DISP.SYRIN SQ SCH (10:14)
[2018-11-13] MEDS: DOCUSATE SODIUM 100 MG CAPSULE (FP) PO SCH (10:15)
[2018-11-13] MEDS: ATENOLOL 50 MG TABLET (FP) PO SCH (10:15)
[2018-11-13] MEDS: LORATADINE 10 MG TABLET PO SCH (10:15)
[2018-11-13] MEDS: oxyCODONE HCL 5 MG TABLET PO PRN ×2 (10:15→17:00)
[2018-11-13] MEDS: PANTOPRAZOLE 40 MG TABLET (FP) PO SCH (10:35)
[2018-11-13] MEDS: ATORVASTATIN CA 40 MG TABLET (FP) PO SCH (21:36)
[2018-11-13] MEDS: diazePAM 5 MG TABLET PO PRN (21:36)
[2018-11-13] MEDS: ESCITALOPRAM OXALATE 20 MG TABLET (FP) PO SCH (21:36)
--- NOTE | 2018-11-14 05:44 | PN ---
Progress Note, Physician Chief Complaint: in bed NAD afebrile awaiting DC to [facility] occasional LLE pain better with pain meds ; on DVT pfx takes it no more cough no CP/SOB; incentive spirometry to be done few times a day d/w pt chest CT d/w pt [facility] atelectasis, h/o smoking, to f/u chest CT in 3 months outpt to ensure resolution of changes; script given ?R shoulder changes? needs R shoulder xrays ordered but pt does not want to do them at this point, has no pain, to do it outpt script given d/w pt f/u needed after DC home; to see ortho in SNF in 1 week d/w pt and staff - Current Medication List Current Medications: Active Medications Acetaminophen (Tylenol -) 650 mg PO Q6H PRN PRN Reason: PAIN LEVEL 6-10 Last Admin: 11/11/18 19:00 Dose: 650 mg Artificial Tears (Artificial Tears) 1 drop OU Q6H PRN PRN Reason: DRY EYES Last Admin: 11/11/18 22:29 Dose: 1 drop Atenolol (Tenormin -) 50 mg PO DAILY [facility] Last Admin: 11/13/18 10:15 Dose: 50 mg Atorvastatin Calcium (Lipitor -) 40 mg PO HS [facility] Last Admin: 11/13/18 21:36 Dose: 40 mg Diazepam (Valium -) 5 mg PO BID PRN PRN Reason: ANXIETY Last Admin: 11/13/18 21:36 Dose: 5 mg Docusate Sodium (Colace -) 200 mg PO DAILY [facility] Last Admin: 11/13/18 10:15 Dose: 200 mg Enoxaparin Sodium (Lovenox -) 40 mg SQ DAILY [facility] Last Admin: 11/13/18 10:14 Dose: 40 mg Escitalopram Oxalate (Lexapro -) 20 mg PO BID [facility] Last Admin: 11/13/18 21:36 Dose: 20 mg Guaifenesin (Robitussin -) 10 ml PO Q6H PRN PRN Reason: COUGH Last Admin: 11/10/18 21:07 Dose: 10 ml Loratadine (Claritin -) 10 mg PO DAILY [facility] Last Admin: 11/13/18 10:15 Dose: 10 mg Oxycodone HCl (Roxicodone -) 10 mg PO Q6H PRN PRN Reason: PAIN LEVEL 6-10 Last Admin: 11/13/18 17:00 Dose: 10 mg Pantoprazole Sodium (Protonix -) 40 mg PO DAILY [facility] Last Admin: 11/13/18 10:35 Dose: 40 mg - Objective Vital Signs: Vital Signs Temperature 98.2 F 11/13/18 21:00 Pulse Rate 65 11/13/18 21:00 Respiratory Rate 18 11/13/18 21:00 Blood Pressure 125/65 11/13/18 21:00 O2 Sat by Pulse Oximetry (%) 98 11/10/18 17:35 Constitutional: Yes: No Distress, Calm Eyes: Yes: Conjunctiva Clear HENT: Yes: Atraumatic Neck: Yes: Supple Cardiovascular: Yes: Regular Rate and Rhythm Respiratory: Yes: CTA Bilaterally. No: Cough Gastrointestinal: Yes: Soft. No: Tenderness Genitourinary: No: CVA Tenderness - Left, CVA Tenderness - Right Musculoskeletal: No: Joint Stiffness, Joint Swelling Extremities: Yes: Other (L thigh surgery wound dressed no bleed no edema seen by ortho). No: Cold, Cool, Cyanosis Edema: No Integumentary: No: Rash, Venous Stasis Changes Neurological: Yes: WNL, Alert, Oriented ...Motor Strength: WNL Psychiatric: Yes: WNL, Alert, Oriented. No: Agitated, Suicidal Ideation Labs: CBC, BMP 11/12/18 06:30 11/11/18 06:15 INR, PTT INR 1.08 (0.83-1.09) 11/08/18 15:15 - ....Imaging Other: Report Reviewed Assessment/Plan The patient is a 78 year old male with a significant PMH of HTN, HLD, left knee replacement admitted with L mid-shaft femoral fracture; hyponatremia most likely sec to [place] sec to pain; f/u lab q1 week in SNF s/p L femoral surgery for fracture for PT / SNF DVT pfx valium prn for anxiety pain meds d/w pt and staff; see above.
[2018-11-14] MEDS: ESCITALOPRAM OXALATE 20 MG TABLET (FP) PO SCH ×2 (08:57→10:42)
[2018-11-14] MEDS: ATENOLOL 50 MG TABLET (FP) PO SCH ×2 (08:58→10:42)
[2018-11-14] MEDS: PANTOPRAZOLE 40 MG TABLET (FP) PO SCH ×2 (08:58→10:42)
[2018-11-14] MEDS: LORATADINE 10 MG TABLET PO SCH ×2 (08:58→10:41)
[2018-11-14] MEDS: DOCUSATE SODIUM 100 MG CAPSULE (FP) PO SCH ×2 (08:58→10:41)
[2018-11-14] MEDS: oxyCODONE HCL 5 MG TABLET PO PRN (08:59)
[2018-11-14] MEDS: ACETAMINOPHEN 325 MG TABLET (FP) PO PRN (09:00)
[2018-11-14] MEDS: ENOXAPARIN NA (PORCINE) 40 MG/0.4 ML DISP.SYRIN SQ SCH (09:01)
[2018-11-14] MEDS: diazePAM 5 MG TABLET PO PRN (10:40)
--- NOTE | 2018-11-14 10:43 | PN ---
Progress Note (short form) - Note Progress Note: Ortho Pt seen and examined s/p left long IM gamma nail Selected Entries 11/14/18 06:28 Temperature 98.7 F Pulse Rate 67 Respiratory 18 Rate Blood Pressure 129/62 Laboratory Tests 11/12/18 06:30 WBC 6.7 Hgb 12.1 Hct 35.3 L Plt Count 94 L dressing c/d/i, calf soft,nt nvi a/p PT wbat dvt ppx pain control d/c planning
[2018-11-14 11:30] VITALS: BP 130/75; PULSE 71; TEMP 98.1
== END 2018-11-14 12:54 | DRG 481 ==
LOC: JER 12:44 → JERBED 14:44 → J8W 23:48
PROVIDERS: ADMIT Specialist; ATTEND Specialist
PROC: 07DR3ZZ Extraction of Iliac Bone Marrow, Percutaneous Approach (ICD-10-PCS; 2018-11-10)
PROC: 0QS906Z Reposition Left Femoral Shaft with Intramedullary Internal Fixation Device, Open Approach (ICD-10-PCS; principal; 2018-11-10 14:30)
PROC: 0QU Lower Bones, Supplement (ICD-10-PCS; 2018-11-10 14:30)
DX: S72.302A Unspecified fracture of shaft of left femur, initial encounter for closed fracture (principal); J98.11 Atelectasis; E22.2 Syndrome of inappropriate secretion of antidiuretic hormone; I10 Essential (primary) hypertension; E78.5 Hyperlipidemia, unspecified; W18.39XA Other fall on same level, initial encounter; Y93.89 Activity, other specified; Y92.091 Bathroom in other non-institutional residence as the place of occurrence of the external cause; Y99.8 Other external cause status; E66.9 Obesity, unspecified; Z68.38 Body mass index [BMI] 38.0-38.9, adult
CPT/HCPCS: 36415; 71045-TC-FY; 71250-TC; 72170-TC-FY; 73552-TC-LT-FY; 73562-TC-LT-FY; 80048; 80053; 82962; 85025; 85027; 85610; 85730; 86022; 86850; 86900; 86901; 93005; 93010; 94010; 94760; 97116-GP; 97162-GP; 99285-25; J1644

== ENCOUNTER 2018-11-28 15:45 | Inpatient (IN) | payer BC, OTHER | END 2018-12-01 13:45 | disposition home or self-care (01) | LOC: JER 15:45 → JERBED 18:35 → J6S 21:28 ==